=== PATIENT | female | born 1985 | race Caucasian/White ===

== ENCOUNTER 2018-01-10 20:23 | Emergency (ER) | payer OTHER ==
[2018-01-10 21:01] VITALS: BP 108/89
--- NOTE | 2018-01-10 21:57 | ED Physician Documentation ---
General Adult - HISTORIAN Historian: patient - HPI Stated Complaint: On-going complaint of weakness/allergy-like symptoms for 2 weeks Chief Complaint: General Adult Additional Information: Sinus congestion and tired for two weeks. No treatment attempted, Smokes 1 PPD. Right forearm pain and finger numbness for two weeks. Worse at the end of the day. Right handed. Has had tendonitis in this wrist in the past. No treatment attempted. No other associated signs. - ROS CONST: no problems - PAST HX Past History: other (above) Allergies/Adverse Reactions: Allergies Allergy/AdvReac Type Severity Reaction Status Date / Time No Known Allergies Allergy Verified 01/10/18 21:01 Home Medications: Ambulatory Orders Medication Instructions Recorded Azithromycin [Zithromax] 250 mg PO DAILY #4 tablet 01/10/18 Cyclobenzaprine HCl 10 mg PO PRN PRN 01/10/18 Diclofenac Sodium 75 mg PO PRN PRN 01/10/18 Loratadine [Allergy] 10 mg PO DAILY #30 tablet 01/10/18 Omeprazole 20 mg PO D 01/10/18 Sertraline HCl 50 mg PO D 01/10/18 - SOCIAL HX Smoking History: cigarettes - FAMILY HX Family History: No - VITAL SIGNS Vital Signs: Vital Signs Temp Pulse Resp BP Pulse Ox 98.3 F 100 H 14 108/89 01/10/18 20:25 01/10/18 20:25 01/10/18 20:25 01/10/18 20:25 - REVIEWED ASSESSMENTS Nursing Assessment Reviewed: Yes Vitals Reviewed: Yes ED Results Lab/Radiology - Orders Orders: ED Orders Category Date Time Status Azithromycin [Zithromax] Med 01/10/18 21:47 Once 500 mg PO NOW ONE General Adult Physical Exam - PHYSICAL EXAM GENERAL APPEARANCE: mild distress EENT: eye inspection normal, no signs of dehydration, other (hypertrophied tonsils. No pain with palpation facial sinus areas. Muffled voice) NECK: normal inspection, lymphadenopathy (1+ left, sub auricular) RESPIRATORY: no resp distress, rales (clear with cough) CVS: reg rate & rhythm, heart sounds normal, no murmur BACK: normal inspection, other (movements w/o pain) SKIN: warm/dry, normal color EXTREMITIES: normal range of motion (gait and stance) NEURO: CN's nml as tested, motor nml, sensation nml, cognition normal Discharge Clincal Impression: Sinusitis Qualifiers: Sinusitis location: unspecified location Chronicity: acute Recurrence: not specified as recurrent Qualified Code(s): J01.90 - Acute sinusitis, unspecified Prescriptions: Azithromycin [Zithromax] 250 mg PO DAILY #4 tablet Loratadine [Allergy] 10 mg PO DAILY #30 tablet Referrals: Primary Doctor,No [Primary Care Provider] - 2 Days Condition: Good Disposition: 01 HOME, SELF-CARE Decision to Admit: NO Decision Time: 21:56
[2018-01-10] MEDS: AZITHROMYCIN 250 MG TABLET PO ONE (23:58)
== END 2018-01-10 22:00 | disposition home or self-care (01) ==
LOC: ED 20:23
DX: J01.90 Acute sinusitis, unspecified (principal)
CPT/HCPCS: 99282

== ENCOUNTER 2018-01-18 00:13 | Emergency (ER) | payer OTHER ==
--- NOTE | 2018-01-18 00:20 | ED Physician Documentation ---
General Adult - HISTORIAN Historian: patient - HPI Stated Complaint: Sinus pain Chief Complaint: General Adult Onset: days ago Timing: still present Severity: moderate Further Comments: yes (Pt is a 32 yo female who was seen here a week ago for sinusitis and environ. allergies. She was tx'd with Azithromycin and Loratadine. Pt states that sx were not improved. Pt also c/o eye puffiness and itching, which she attributes to her allergies. Pt has had no fever, cough or sore throat. She needs an illness/work excuse.) - ROS CONST: no problems EYES/ENT: nasal drainage, nasal congestion, other (eye itching/puffiness) CVS/RESP: none GI/: none MS/SKIN/LYMPH: none - PAST HX Past History: other (Anemia, Depression, low back pain, GERD, hyponatremia.) Allergies/Adverse Reactions: Allergies Allergy/AdvReac Type Severity Reaction Status Date / Time No Known Allergies Allergy Verified 01/18/18 00:42 Home Medications: Ambulatory Orders Medication Instructions Recorded Cyclobenzaprine HCl 10 mg PO PRN PRN 01/10/18 Diclofenac Sodium 75 mg PO PRN PRN 01/10/18 Loratadine [Allergy] 10 mg PO DAILY #30 tablet 01/10/18 Omeprazole 20 mg PO D 01/10/18 Sertraline HCl 50 mg PO D 01/10/18 - SOCIAL HX Smoking History: cigarettes - FAMILY HX Family History: No - VITAL SIGNS Vital Signs: Vital Signs Temp Pulse Resp BP Pulse Ox 108/89 01/10/18 23:58 - REVIEWED ASSESSMENTS Nursing Assessment Reviewed: Yes Vitals Reviewed: Yes Progress - Progress Progress: Rx Bactrim DS. Take one every 12 hours for 10 days. Clear Eyes Itchy Eye Relief. Use as directed. Nasal Washes. One or two times daily as tolerated. General Adult Physical Exam - PHYSICAL EXAM GENERAL APPEARANCE: no distress EENT: eye inspection normal, pharynx normal, TM's nml, other (edentulous) NECK: normal inspection, supple RESPIRATORY: no resp distress, chest non-tender, breath sounds normal CVS: reg rate & rhythm, heart sounds normal BACK: normal inspection SKIN: warm/dry, normal color EXTREMITIES: non-tender, normal range of motion, no evidence of injury NEURO: oriented X3, motor nml, sensation nml Discharge Clincal Impression: Sinusitis Qualifiers: Sinusitis location: unspecified location Chronicity: unspecified Qualified Code(s): J32.9 - Chronic sinusitis, unspecified Referrals: Primary Doctor,No [Primary Care Provider] - Condition: Good Disposition: 01 HOME, SELF-CARE Decision to Admit: NO Decision Time: 01:09
[2018-01-18 01:11] VITALS: BP 120/75
== END 2018-01-18 01:00 | disposition home or self-care (01) ==
LOC: ED 00:13
DX: J32.9 Chronic sinusitis, unspecified (principal)
CPT/HCPCS: 99282